=== PATIENT | female | born 1945 | race Caucasian/White ===

== ENCOUNTER → 2016-12-23 16:35 | Outpatient (CLI) | payer MEDICARE, BC ==
[2016-07-09 10:47] VITALS: BMI 27.2
[~2016-12-23 16:35] MED LIST: BIOTIN5 MG PO; DETROL LA2 MG PO; ELIQUIS5 MG PO; ERYTHROMYCIN PO; ESTRACE1 MG PO; GLUCOPHAGE500 MG PO; HCTZ25 MG PO; HUMULIN R100 U/ML SC; KEFLEX500 MG PO; L-LYSINE500 M1 PO; LIALDA1.2 G PO; MUCINEX600 MG; NEXIUM40 MG PO; ORAPRED ODT10 MG/TAB PO; PEPCID20 MG PO; PLAQUENIL200 MG PO; POTASSIUM CHLO10 ME1 PO; PROTONIX40 MG PO; PROVENTIL HFA6.7 GM; REMICADE INJ100 MG; SINGULAIR10 MG PO; STERAPRED DS 1210 MG PO; VERELAN120 MG PO; VIMOVO
== END | disposition home or self-care (01) ==
LOC: D.MAMMO 12-19 08:30 → D.US 12-19 09:30 → D.MAMMO 08:30
DX: R92.8 Other abnormal and inconclusive findings on diagnostic imaging of breast (principal); N95.9 Unspecified menopausal and perimenopausal disorder

== ENCOUNTER 2017-10-24 20:43 | Emergency (ER) | payer MEDICARE, BC ==
[2016-07-09 10:47] VITALS: BMI 27.2
[2017-10-24 21:26] LABS: APPEARANCE CLEAR (CLEAR); BILIRUBIN NEGATIVE (NEGATIVE); COLOR DK YELLOW (YELLOW); GLUCOSE NEGATIVE (NEGATIVE); KETONE NEGATIVE (NEGATIVE); NITRITE NEGATIVE (NEGATIVE); PROTEIN TRACE mg/dL (NEGATIVE); SPECIFIC GRAVITY 1.025 (1.005-1.020); UROBILINOGEN NORMAL (NORMAL)
[2017-10-24 21:39] LABS: BASOPHILS 0.2 % (0-2); EOSINOPHILS 0 % (0-7); HEMATOCRIT 45.8 % (36.0-48.0); HEMOGLOBIN 15.7 g/dL (12-16); LYMPHOCYTES 34.2 % (15-50); MCH 30.7 pg (26.0-34.0); MCHC 34.3 g/dL (31.0-37.0); MCV 89.5 fL (80.0-100.0); MEAN PLATELET VOLUME 9.7 fL (7.4-10.4); NEUTROPHILS 44.6 % (40-80); PLATELET COUNT 137 10x3/uL (130-400); RBC 5.12 10x6/uL (4.00-5.40); RDW 12.6 % (11.5-14.5); WBC 4.4 10x3/uL (4.8-10.8)
[2017-10-24 21:55] LABS: ALBUMIN 3.8 g/dL (3.4-5.0); ANION GAP 15.9 mmol/L (8-16); BILIRUBIN - TOTAL 0.73 mg/dL (0.2-1.3); CALCIUM 9.4 mg/dL (8.5-10.1); POTASSIUM - SERUM 4.9 mmol/L (3.5-5.1); PROTEIN - SERUM 7.4 g/dL (6.4-8.2)
== END 2017-10-24 22:05 | disposition home or self-care (01) ==
LOC: D.ER 20:43
PROVIDERS: Emergency Medicine
DX: J11.1 Influenza due to unidentified influenza virus with other respiratory manifestations (principal)

== ENCOUNTER 2017-10-26 15:38 | Inpatient (IN) | payer MEDICARE, BC ==
[~2017-10-26] VITALS: Ht 157.5 cm; Wt 73.3 kg
[2017-10-26 16:31] LABS: HEMATOCRIT 45.4 % (36.0-48.0); HEMOGLOBIN 15.5 g/dL (12-16); MCH 31.1 pg (26.0-34.0); MCHC 34.1 g/dL (31.0-37.0); MCV 91.2 fL (80.0-100.0); PLATELET COUNT 116 10x3/uL (130-400); RBC 4.98 10x6/uL (4.00-5.40); RDW 12.6 % (11.5-14.5); WBC 4.1 10x3/uL (4.8-10.8)
[2017-10-26 16:46] LABS: ANION GAP 12.5 mmol/L (8-16); CALCIUM 9.2 mg/dL (8.5-10.1); CARBON DIOXIDE 30.2 mmol/L (21.0-32.0); CREATININE - SERUM 0.9 mg/dL (0.6-1.3)
[2017-10-26 17:01] LABS: POTASSIUM - SERUM 3.7 mmol/L (3.5-5.1)
[2017-10-26 17:17] VITALS: BMI 29.3
[2017-10-26 18:50] LABS: LYMPHOCYTES 64 % (15-50); MONOCYTES 2 % (2-11); NEUTROPHILS 34 % (40-80); PLATELET ESTIMATE DECREASED
[2017-10-26 18:51] LABS: APPEARANCE CLEAR (CLEAR); COLOR YELLOW (YELLOW)
[2017-10-26 18:52] LABS: BACTERIA FEW /hpf (NONE SEEN); BILIRUBIN NEGATIVE (NEGATIVE); EPITHELIAL CELLS OCC /hpf (0-5); GLUCOSE NEGATIVE (NEGATIVE); KETONE SMALL mg/dL (NEGATIVE); NITRITE NEGATIVE (NEGATIVE); PROTEIN NEGATIVE (NEGATIVE); UROBILINOGEN NORMAL (NORMAL); WHITE CELLS - URINE 0-5 /hpf (0-5)
[2017-10-26 20:00] VITALS: BP 144/116
[2017-10-26] MEDS ORDERED: ELIQUIS5 MG PO (20:04)
[2017-10-27 04:00] VITALS: BP 132/72
[2017-10-27 04:48] VITALS: BP 144/116; BMI 30.1
[2017-10-27 05:57] LABS: BASOPHILS 0.3 % (0-2); EOSINOPHILS 0.3 % (0-7); HEMATOCRIT 40.4 % (36.0-48.0); HEMOGLOBIN 13.4 g/dL (12-16); LYMPHOCYTES 73.1 % (15-50); MCH 30.2 pg (26.0-34.0); MCHC 33.2 g/dL (31.0-37.0); MEAN PLATELET VOLUME 9.1 fL (7.4-10.4); MONOCYTES 12.9 % (2-11); NEUTROPHILS 13.4 % (40-80); PLATELET COUNT 105 10x3/uL (130-400); RBC 4.44 10x6/uL (4.00-5.40); RDW 12.7 % (11.5-14.5); WBC 3.5 10x3/uL (4.8-10.8)
[2017-10-27 06:20] LABS: ALKALINE PHOSPHATASE 38 U/L (46-116); ALT (SGPT) 29 U/L (10-68); BILIRUBIN - TOTAL 0.49 mg/dL (0.2-1.3); CALC OSMOLALITY 277 mosm/kg (275-300); CALCIUM 8.4 mg/dL (8.5-10.1); CARBON DIOXIDE 28.5 mmol/L (21.0-32.0); CHLORIDE - SERUM 104 mmol/L (98-107); CREATININE - SERUM 0.7 mg/dL (0.6-1.3); GLUCOSE 79 mg/dL (74-106); POTASSIUM - SERUM 3.3 mmol/L (3.5-5.1); PROTEIN - SERUM 5.8 g/dL (6.4-8.2); SODIUM 140 mmol/L (136-145); eGFR NON AFRICAN AMERICAN 88 mL/min (90-120)
[2017-10-27 06:26] LABS: UREA NITROGEN 12 mg/dL (7-18)
[2017-10-27 09:12] VITALS: BP 128/89
[2017-10-27] MEDS ORDERED: VERAPAMIL HCL40 MG PO (09:47)
[2017-10-27 09:56] VITALS: Ht 157.5 cm; Wt 73.3 kg
[2017-10-27] MEDS ORDERED: TAMIFLU75 MG PO (11:36)
[2017-10-27 12:10] VITALS: BP 140/55
== END 2017-10-27 14:26 | disposition home or self-care (01) | DRG 194 ==
LOC: D.OPS 15:38 → D.M2 19:45 → D.OPS 20:30 → D.M2 10-27 07:45 → D.OPS 10-27 07:46 → D.M2 10-27 14:26
PROVIDERS: Family Medicine; Nurse Practitioner Family
DX: J11.00 Influenza due to unidentified influenza virus with unspecified type of pneumonia (principal); F05 Delirium due to known physiological condition; I10 Essential (primary) hypertension; E86.0 Dehydration; K21.9 Gastro-esophageal reflux disease without esophagitis

== ENCOUNTER 2018-04-15 08:00 | Outpatient (CLI) | payer MEDICARE, BC ==
[2017-10-27 09:56] VITALS: BMI 29.5
[~2018-04-15 08:00] MED LIST changes: +TAMIFLU75 MG PO; +VERAPAMIL HCL40 MG PO
== END 2018-04-15 09:00 | disposition home or self-care (01) ==
LOC: D.MAMMO 08:00
DX: Z12.31 Encounter for screening mammogram for malignant neoplasm of breast (principal)

== ENCOUNTER 2018-08-05 07:02 | Inpatient (IN) | payer MEDICARE, BC ==
[~2018-08-05] VITALS: Ht 157.5 cm; Wt 77.4 kg
[2018-08-05] VITALS (10 sets, daily range): BP systolic 117–195; BP diastolic 54–110; Ht 157.5 cm; Wt 77.4 kg
--- NOTE | ~2018-08-05 | MORECARE ---
CASE MANAGEMENT DISCHARGE SUMMARY PATIENT: SHEYLA GONZALEZ UNIT: [id number] ADM DATE: 08/05/18 AGE: 72 : [birth year] SEX: F ROOM/BED: D.2301 AUTHOR: FARADOC PHYSICIAN: REFERRING PHYSICIAN: MARYJANE FARFAN MD DATE OF SERVICE: 08/05/18 Discharge Plan Patient Name: SHEYLA GONZALEZ Facility: [facility]:[place] : 1945 Planned Disposition: Anticipated Discharge Date: 08/09/18 Discharge Date: Expected LOS: 4 Initial Reviewer: [email or web address] Initial Review Date: 08/05/2018 Generated: 08/05/18 11:59 am DCP- Discharge Planning Updated by [email or web address]: Marlys Loja on 08/05/18 9:[address] Patient Name: SHEYLA GONZALEZ Admission Status: ER Accout number: [id number] Admission Date: 08-05-2018 : 1945 Admission Diagnosis: Attending: MARYJANE FARFAN Current LOS: 1 Anticipated DC Date: 08-09-2018 Planned Disposition: Primary Insurance: MEDICARE A & B Discharge Planning Comments: CM met with patient's spouse to complete initial dc planning assessment. CM educated Mr. Gonzalez on the cm role and he gave verbal consent to completed assessment. Prior to admission patient was independent at home and did not require use of assistive devices. The discharge goal at this time is for the patient to return home with him and he feels this is a safe discharge plan. It is unknown at this time what assistance the patient will need at discharge. CM will continue to follow and will assist as needed with dc plans/needs. Mr. Gonzalez verbalized understanding at this time and denied questions or concerns. Quarry Boss: Marlys Loja DCPIA - Discharge Planning Initial Assessment Updated by [email or web address]: Marlys Loja on 08/05/18 10:51 am * Is the patient Alert and Oriented? No * How many steps to enter\exit or inside your home? two * PCP Dr. Welsh * Pharmacy [facility] [address] * Preadmission Environment Home with Family * ADLs Independent * Equipment None * List name and contact numbers for known caregivers / representatives who currently or will assist patient after discharge: Avila Gonzalez - spouse - [phone] * Verbal permission to speak to the caregivers and representatives has been obtained from the patient. Yes * Community resources currently utilized None * Can the patient safely return to the preadmission environment? Yes * Has this patient been hospitalized within the prior 30 days at any hospital? No Last DP export: 08/05/18 9:51 a Patient Name: SHEYLA GONZALEZ Page [id number] at 1100 All edits/amendments must be made on the electronic document DICTATION DATE: 08/05/18 105 ZONING ADMINISTRATOR: MALORIE 08/05/18 105 RPT#: [id number] [place] DATE: STATUS: ADM IN [facility] [address] [place] [address] END OF REPORT
--- NOTE | ~2018-08-05 | MORECARE ---
CASE MANAGEMENT DISCHARGE SUMMARY PATIENT: SHEYLA GONZALEZ UNIT: [id number] ADM DATE: 08/05/18 AGE: 72 : [birth year] SEX: F ROOM/BED: D.2301 AUTHOR: FARA,DOC PHYSICIAN: REFERRING PHYSICIAN: MARYJANE FARFAN MD DATE OF SERVICE: 08/05/18 Discharge Plan Patient Name: SHEYLA GONZALEZ Facility: [facility]:[place] : 1945 Planned Disposition: Anticipated Discharge Date: 08/09/18 Discharge Date: 08/05/2018 Expected LOS: 4 Initial Reviewer: [email or web address] Initial Review Date: 08/05/2018 Generated: 08/05/18 7:42 pm Comments DCP- Discharge Planning Updated by [email or web address]: Rebecca Eugene on 08/05/18 5:[address] Late Entry 08/05/18 @2831 - 9649 CM was contacted that family was planning on terminal extabation later today and family was wanting to donate her body to science. CM contacted both [facility] and [facility] about donation. [facility] denied body due to BMI and [facility] denied patient due to cranial bleed and needing to be able to use all the vessels in the brain for science. Family expressed that they couldn't pay for expenses. CM then called area homes and crematories in [place] to check pricing. CM relayed information to nurse for family to make decision. Family decided on [facility] in [place]. DCP- Discharge Planning Updated by [email or web address]: Marlys Loja on 08/05/18 9:[address] Patient Name: SHEYLA GONZALEZ Admission Status: ER Accout number: [id number] Admission Date: 08-05-2018 : 1945 Admission Diagnosis: Attending: MARYJANE FARFAN Current LOS: 1 Anticipated DC Date: 08-09-2018 Planned Disposition: Primary Insurance: MEDICARE A & B Discharge Planning Comments: CM met with patient's spouse to complete initial dc planning assessment. CM educated Mr. Gonzalez on the cm role and he gave verbal consent to completed assessment. Prior to admission patient was independent at home and did not require use of assistive devices. The discharge goal at this time is for the patient to return home with him and he feels this is a safe discharge plan. It is unknown at this time what assistance the patient will need at discharge. CM will continue to follow and will assist as needed with dc plans/needs. Mr. Gonzalez verbalized understanding at this time and denied questions or concerns. Quill Cleaner: Marlys Loja DCPIA - Discharge Planning Initial Assessment Updated by [email or web address]: Marlys Loja on 08/05/18 10:51 am * Is the patient Alert and Oriented? No * How many steps to enter\exit or inside your home? two * PCP Dr. Welsh * Pharmacy [facility] [address] * Preadmission Environment Home with Family * ADLs Independent * Equipment None * List name and contact numbers for known caregivers / representatives who currently or will assist patient after discharge: Avila Gonzalez - [facility] - [phone] * Verbal permission to speak to the caregivers and representatives has been obtained from the patient. Yes * Community resources currently utilized None * Can the patient safely return to the preadmission environment? Yes * Has this patient been hospitalized within the prior 30 days at any hospital? No Last DP export: 08/05/18 9:59 a Patient Name: SHEYLA GONZALEZ Page [id number] at 1842 All edits/amendments must be made on the electronic document DICTATION DATE: 08/05/181841 ART PSYCHOTHERAPIST OR THERAPIST: MALORIE 08/05/181841 RPT#: [id number] DC DATE:08/05/18 STATUS: DIS IN [facility] [address] [place] [address] END OF REPORT
--- NOTE | ~2018-08-05 | MORECARE ---
CASE MANAGEMENT DISCHARGE SUMMARY PATIENT: SHEYLA GONZALEZ UNIT: [id number] ADM DATE: 08/05/18 AGE: 72 : [birth year] SEX: F ROOM/BED: D.2301 AUTHOR: FARA,DOC PHYSICIAN: REFERRING PHYSICIAN: MARYJANE FARFAN MD DATE OF SERVICE: 08/05/18 Discharge Plan Patient Name: SHEYLA GONZALEZ Facility: [facility]:[place] : 1945 Planned Disposition: Anticipated Discharge Date: 08/09/18 Discharge Date: 08/05/2018 Expected LOS: 4 Initial Reviewer: [email or web address] Initial Review Date: 08/05/2018 Generated: 08/05/18 7:48 pm Comments DCP- Discharge Planning Updated by [email or web address]: Rebecca Eugene on 08/05/18 5:[address] Late Entry 08/05/18 @0397 - 4968 CM was contacted that family was planning on terminal extabation later today and family was wanting to donate her body to science. CM contacted both [facility] and [facility] about donation. [facility] denied body due to BMI and [facility] denied patient due to cranial bleed and needing to be able to use all the vessels in the brain for science. Family expressed that they couldn't pay for expenses. CM then called area homes and crematories in [place] to check pricing. CM relayed information to nurse for family to make decision. Family decided on [facility] in [place]. DCP- Discharge Planning Updated by [email or web address]: Marlys Loja on 08/05/18 9:[address] Patient Name: SHEYLA GONZALEZ Admission Status: ER Accout number: [id number] Admission Date: 08-05-2018 : 1945 Admission Diagnosis: Attending: MARYJANE FARFAN Current LOS: 1 Anticipated DC Date: 08-09-2018 Planned Disposition: Primary Insurance: MEDICARE A & B Discharge Planning Comments: CM met with patient's spouse to complete initial dc planning assessment. CM educated Mr. Gonzalez on the cm role and he gave verbal consent to completed assessment. Prior to admission patient was independent at home and did not require use of assistive devices. The discharge goal at this time is for the patient to return home with him and he feels this is a safe discharge plan. It is unknown at this time what assistance the patient will need at discharge. CM will continue to follow and will assist as needed with dc plans/needs. Mr. Gonzalez verbalized understanding at this time and denied questions or concerns. Emergency Response Technician: Marlys Loja DCPIA - Discharge Planning Initial Assessment Updated by [email or web address]: Marlys Loja on 08/05/18 10:51 am * Is the patient Alert and Oriented? No * How many steps to enter\exit or inside your home? two * PCP Dr. Welsh * Pharmacy [facility] [address] * Preadmission Environment Home with Family * ADLs Independent * Equipment None * List name and contact numbers for known caregivers / representatives who currently or will assist patient after discharge: Avila Gonzalez - [facility] - [phone] * Verbal permission to speak to the caregivers and representatives has been obtained from the patient. Yes * Community resources currently utilized None * Can the patient safely return to the preadmission environment? Yes * Has this patient been hospitalized within the prior 30 days at any hospital? No Last DP export: 08/05/18 5:42 p Patient Name: SHEYLA GONZALEZ Page 46993 at 1849 All edits/amendments must be made on the electronic document DICTATION DATE: 08/05/181847 AUTO CRANE DRIVER: MALORIE 08/05/181847 RPT#: [id number] DC DATE:08/05/18 STATUS: DIS IN [facility] [address] [place] [address] END OF REPORT
--- NOTE | ~2018-08-05 | MORECARE ---
CASE MANAGEMENT DISCHARGE SUMMARY PATIENT: SHEYLA GONZALEZ UNIT: [id number] ADM DATE: 08/05/18 AGE: 72 : [birth year] SEX: F ROOM/BED: D.2301 AUTHOR: ENRICO CHAUDHARI PHYSICIAN: REFERRING PHYSICIAN: MARYJANE FARFAN MD DATE OF SERVICE: 08/05/18 Discharge Plan Patient Name: SHEYLA GONZALEZ Facility: [facility]:[place] : 1945 Planned Disposition: Anticipated Discharge Date: 08/09/18 Discharge Date: Expected LOS: 4 Initial Reviewer: [email or web address] Initial Review Date: 08/05/2018 Generated: 08/05/18 11:51 am DCPIA - Discharge Planning Initial Assessment Updated by [email or web address]: Marlys Loja on 08/05/18 10:51 am * Is the patient Alert and Oriented? No * How many steps to enter\exit or inside your home? two * PCP Dr. Welsh * Pharmacy [facility] [address] * Preadmission Environment Home with Family * ADLs Independent * Equipment None * List name and contact numbers for known caregivers / representatives who currently or will assist patient after discharge: Avila Gonzalez - spouse - [phone] * Verbal permission to speak to the caregivers and representatives has been obtained from the patient. Yes * Community resources currently utilized None * Can the patient safely return to the preadmission environment? Yes * Has this patient been hospitalized within the prior 30 days at any hospital? No Patient Name: SHEYLA GONZALEZ Page 11371 at 1051 All edits/amendments must be made on the electronic document DICTATION DATE: 08/05/18 1051 MEAT STOCK CLERK: MALORIE 08/05/18 1051 RPT#: [id number] DC DATE: STATUS: ADM IN [facility] [address] [place] [address] END OF REPORT
[2018-08-05] MEDS ORDERED: COLAZAL750 MG PO (07:19)
[2018-08-05] MEDS ORDERED: HUMIRA (07:19)
[2018-08-05 07:47] LABS: ALBUMIN 3.5 g/dL (3.4-5.0); ALKALINE PHOSPHATASE 70 U/L (46-116); ALT (SGPT) 21 U/L (10-68); BASOPHILS 0.1 % (0-2); BILIRUBIN - TOTAL 0.51 mg/dL (0.2-1.3); CALC OSMOLALITY 283 mosm/kg (275-300); CALCIUM 9.3 mg/dL (8.5-10.1); CARBON DIOXIDE 28.8 mmol/L (21.0-32.0); CHLORIDE - SERUM 104 mmol/L (98-107); CREATININE - SERUM 0.8 mg/dL (0.6-1.3); EOSINOPHILS 1.7 % (0-7); GLUCOSE 103 mg/dL (74-106); HEMOGLOBIN 16.3 g/dL (12-16); IMMATURE GRANULOCYTES 0.1 % (0-5); LYMPHOCYTES 49.4 % (15-50); MCH 32.1 pg (26.0-34.0); MCHC 35.4 g/dL (31.0-37.0); MCV 90.7 fL (80.0-100.0); MEAN PLATELET VOLUME 8.8 fL (7.4-10.4); MONOCYTES 11.4 % (2-11); NEUTROPHILS 37.3 % (40-80); POTASSIUM - SERUM 4.3 mmol/L (3.5-5.1); PROTEIN - SERUM 7.4 g/dL (6.4-8.2); RBC 5.07 10x6/uL (4.00-5.40); RDW 13.9 % (11.5-14.5); SODIUM 142 mmol/L (136-145); UREA NITROGEN 14 mg/dL (7-18); WBC 6.9 10x3/uL (4.8-10.8); eGFR NON AFRICAN AMERICAN 75 mL/min (90-120)
[2018-08-05 07:51] LABS: PLATELET COUNT 214 10x3/uL (130-400)
[2018-08-05 07:55] LABS: APTT 36.1 SECONDS (22.8-39.4); INR 1.05 (0.85-1.17); PROTIME 13.3 SECONDS (11.6-15.0)
[2018-08-05 07:58] LABS: CKMB 0.5 U/L (0.0-3.6); CREATINE KINASE 103 UL (21-215); MAGNESIUM - SERUM 1.9 mg/dL (1.8-2.4); THYROID STIMULATING HORMONE 1.65 uIU/mL (0.36-3.74); TROPONIN-I < 0.017 ng/mL (0.000-0.060)
== END 2018-08-05 13:38 | DRG 85 ==
LOC: D.ER 07:02 → D.EDHOLD 07:55 → D.ICU 07:55
PROVIDERS: Family Medicine
PROC: 5A1935Z Respiratory Ventilation, Less than 24 Consecutive Hours (ICD-10-PCS; principal; 2018-08-05)
PROC: 0BH17EZ Insertion of Endotracheal Airway into Trachea, Via Natural or Artificial Opening (ICD-10-PCS; 2018-08-05)
DX: S06.300A Unspecified focal traumatic brain injury without loss of consciousness, initial encounter (principal); J69.0 Pneumonitis due to inhalation of food and vomit; I16.1 Hypertensive emergency; W19.XXXA Unspecified fall, initial encounter; E11.9 Type 2 diabetes mellitus without complications; R09.2 Respiratory arrest; R40.2313 Coma scale, best motor response, none, at hospital admission; R40.2113 Coma scale, eyes open, never, at hospital admission; R40.2213 Coma scale, best verbal response, none, at hospital admission